=== PATIENT | female | born 1955 | race Caucasian/White ===

== ENCOUNTER → 2019-03-02 | Outpatient (CLI) | payer BC | LOC: MC.RAD 08:55 | DX: Z12.31 Encounter for screening mammogram for malignant neoplasm of breast (principal); R92.0 Mammographic microcalcification found on diagnostic imaging of breast ==

== ENCOUNTER → 2019-03-06 | Outpatient (CLI) | payer BC | LOC: MC.RAD 12:37 | DX: R92.0 Mammographic microcalcification found on diagnostic imaging of breast (principal) ==

== ENCOUNTER 2019-10-09 15:15 | Outpatient (RCR) | payer BC | END 2019-10-25 13:48 | disposition home or self-care (01) | LOC: WSPT 15:15 | DX: I89.0 Lymphedema, not elsewhere classified (principal); Z98.890 Other specified postprocedural states ==